=== PATIENT | male | born 1955 | race Caucasian/White ===

== ENCOUNTER → 2024-05-04 06:37 | Day surgery (SDC) | payer MEDICARE, OTHER, SELFPAY | LOC: GI 06:37 | PROVIDERS: ATTENDING PHYSICIAN Specialist | DX: Z09 Encounter for follow-up examination after completed treatment for conditions other than malignant neoplasm (principal); K57.30 Diverticulosis of large intestine without perforation or abscess without bleeding; D12.8 Benign neoplasm of rectum; D12.2 Benign neoplasm of ascending colon; D12.5 Benign neoplasm of sigmoid colon; Z86.010 Personal history of colon polyps | CPT/HCPCS: 45385; 45380; 88305 ==